=== PATIENT | female | born 1990 | race African-American/Black ===

== ENCOUNTER 2017-11-09 00:26 | Emergency (ER) | payer SELFPAY ==
[~2017-11-09] VITALS: Ht 170.2 cm; Wt 69.0 kg
[~2017-11-09 00:26] MED LIST: PREN-88 PO
[2017-11-09 00:46] VITALS: BP 130/74
== END 2017-11-09 07:13 | disposition left against medical advice (07) ==
LOC: ER 03:29
DX: R68.83 Chills (without fever) (principal); Z53.21 Procedure and treatment not carried out due to patient leaving prior to being seen by health care provider

== ENCOUNTER 2017-11-09 09:00 | Emergency (ER) | payer SELFPAY ==
[~2017-11-09] VITALS: Ht 167.6 cm; Wt 68.0 kg
[2017-11-09] MEDS ORDERED: SODIUM CHLORIDE 0.9% 1,000 ML IV ONE ×2 (10:04→12:06)
[2017-11-09] MEDS ORDERED: MORPHINE SULFATE 4 MG/ML CPJ (NOT FOR IM USE) IV STA (10:04)
[2017-11-09] MEDS ORDERED: ONDANSETRON HCL 4MG/2ML VIAL IV STA (10:04)
[2017-11-09] MEDS ORDERED: FAMOTIDINE 20MG/2ML VIAL IV STA (10:04)
[2017-11-09 10:35] LABS: BASOPHILS % 0.1 % (0.0-2.0); HEMATOCRIT. 37.5 % (36.0-48.0); HEMOGLOBIN. 12.9 g/dL (12.0-16.0); MEAN CORPUSCULAR VOLUME 87.2 fL (81.0-99.0); MEAN PLATELET VOLUME 7.7 fl (7.4-10.4); MONOCYTES % 12.2 % (2.0-8.0); NEUTROPHILS % 67.7 % (40.0-76.0); PLATELET 282 x1000/uL (130-400); RED CELL DISTRIBUTION WIDTH 13.6 % (11.6-14.6)
[2017-11-09 10:43] LABS: INR 1.2; PROTHROMBIN TIME 12.2 sec (9.4-11.6)
[2017-11-09 10:44] LABS: CHLORIDE 107 mEq/L (98-107); ETHANOL BLOOD < 10 mg/dL
[2017-11-09 10:48] LABS: HCG SCREEN NEGATIVE
[2017-11-09 10:59] LABS: CLARITY URINE CLOUDY (CLEAR); COLOR URINE DARK YELLOW (YELLOW); KETONES URINE NEGATIVE (NEGATIVE); LEUKOCYTE ESTERASE URINE NEGATIVE (NEGATIVE); NITRITE URINE NEGATIVE (NEGATIVE); OCCULT BLOOD URINE 3+ (NEGATIVE); PH URINE 5.5 (4.5-8.0); PROTEIN URINE 1+ (NEGATIVE); UROBILINOGEN URINE 0.2 E.U./dL (0.2-1.0)
[2017-11-09 11:27] LABS: *AMPHETAMINES SCREEN URINE NEGATIVE (NEGATIVE); *BARBITURATES SCREEN URINE NEGATIVE (NEGATIVE); *BENZODIAZEPINES SCREEN URINE NEGATIVE (NEGATIVE); *COCAINE SCREEN URINE NEGATIVE (NEGATIVE); METHADONE URINE SCREEN NEGATIVE (NEGATIVE); OPIATES URINE SCREEN NEGATIVE (NEGATIVE); PHENCYCLIDINE URINE SCREEN NEGATIVE (NEGATIVE)
[2017-11-09 11:35] LABS: CANNABINOID URINE SCREEN PRESUMTIVE POSITIVE (NEGATIVE)
[2017-11-09] MEDS ORDERED: MAGNESIUM/ALUMINUM HYDROXIDE/SIMETHICONE 30ML UDC PO ONE (12:15)
[2017-11-09 15:30] VITALS: BP 118/75
== END 2017-11-09 15:46 | disposition home or self-care (01) ==
LOC: ER 09:21
DX: N39.0 Urinary tract infection, site not specified (principal); K29.70 Gastritis, unspecified, without bleeding
CPT/HCPCS: 36415; 76705; 80053; 80305; 81003; 83690; 84484; 84703; 85025; 85610; 96361; 96374; 96375; 99285; G0482; J2270; J2405; J3490; J7030

== ENCOUNTER 2018-01-31 22:29 | Emergency (ER) | payer MEDICAID ==
[~2018-01-31] VITALS: Ht 170.2 cm; Wt 70.0 kg
[2018-01-31 23:27] LABS: CLARITY URINE CLEAR (CLEAR); COLOR URINE YELLOW (YELLOW); KETONES URINE NEGATIVE (NEGATIVE); LEUKOCYTE ESTERASE URINE NEGATIVE (NEGATIVE); NITRITE URINE NEGATIVE (NEGATIVE); OCCULT BLOOD URINE NEGATIVE (NEGATIVE); PH URINE 6.5 (4.5-8.0); PROTEIN URINE NEGATIVE (NEGATIVE); SPECIFIC GRAVITY URINE 1.006 (1.005-1.030); UROBILINOGEN URINE 0.2 E.U./dL (0.2-1.0)
[2018-02-01] MEDS ORDERED: KETOROLAC 60MG/2ML VIAL IM ONE (03:45)
[2018-02-01 05:03] VITALS: BP 115/69
== END 2018-02-01 05:04 | disposition home or self-care (01) ==
LOC: ER 22:29
DX: M54.9 Dorsalgia, unspecified (principal); S39.012A Strain of muscle, fascia and tendon of lower back, initial encounter; X58.XXXA Exposure to other specified factors, initial encounter; Y93.9 Activity, unspecified; Y92.9 Unspecified place or not applicable
CPT/HCPCS: 81003; 81025; 96372; 99283; J1885

== ENCOUNTER 2018-03-29 03:30 | Emergency (ER) | payer MEDICAID, OTHER ==
[~2018-03-29] VITALS: Ht 170.2 cm; Wt 70.0 kg
[2018-03-29] MEDS ORDERED: SODIUM CHLORIDE 0.9% 1,000 ML IV ONE (04:06)
[2018-03-29] MEDS ORDERED: KETOROLAC 30MG/ML VIAL IV STA (04:06)
[2018-03-29] MEDS ORDERED: CYCLOBENZAPRINE 10MG TABLET PO ONE (04:15)
[2018-03-29] MEDS ORDERED: METHYLPREDNISOLONE SOD SUCC 40 MG/ML VIAL IV ONE (04:15)
[2018-03-29 05:03] LABS: CLARITY URINE CLOUDY (CLEAR); COLOR URINE YELLOW (YELLOW); KETONES URINE TRACE (NEGATIVE); OCCULT BLOOD URINE NEGATIVE (NEGATIVE); PH URINE 5.5 (4.5-8.0); PROTEIN URINE TRACE (NEGATIVE); SPECIFIC GRAVITY URINE 1.029 (1.005-1.030)
[2018-03-29 05:04] LABS: LEUKOCYTE ESTERASE URINE TRACE (NEGATIVE); NITRITE URINE NEGATIVE (NEGATIVE)
[2018-03-29 06:07] VITALS: BP 121/88
== END 2018-03-29 06:08 | disposition home or self-care (01) ==
LOC: ER 03:30
DX: M54.5 Low back pain (principal); R51 Headache
CPT/HCPCS: 81003; 81025; 96374; 96375; 99285; J1885; J2920; J7030; Z7610

== ENCOUNTER 2018-07-31 10:54 | Emergency (ER) | payer OTHER ==
[~2018-07-31] VITALS: Ht 170.2 cm; Wt 77.0 kg
[2018-07-31] MEDS ORDERED: ONDANSETRON HCL 4MG/2ML INJ IV STA (11:16)
[2018-07-31] MEDS ORDERED: SODIUM CHLORIDE 0.9% 1,000 ML IV ONE (11:16)
[2018-07-31] MEDS ORDERED: FAMOTIDINE 20MG/2ML VIAL IV ONE (11:30)
[2018-07-31] MEDS ORDERED: FENTANYL CITRATE/PF 50MCG/ML 2ML VIAL IV ONE (12:15)
[2018-07-31 12:18] LABS: BASOPHILS % 0.5 % (0.0-2.0); EOSINOPHILS % 0.1 % (0.0-5.0); HEMATOCRIT. 41.2 % (36.0-48.0); HEMOGLOBIN. 13.9 g/dL (12.0-16.0); LYMPHOCYTES % 12.7 % (20.0-50.0); MEAN CORPUSCULAR HEMOGLOBIN 30.3 pg (28.0-32.0); MEAN CORPUSCULAR VOLUME 89.7 fL (81.0-99.0); MEAN PLATELET VOLUME 7.8 fl (7.4-10.4); MONOCYTES % 5.2 % (2.0-8.0); NEUTROPHILS % 81.5 % (40.0-76.0); PLATELET 350 x1000/uL (130-400); RED BLOOD CELL COUNT 4.59 mill/uL (4.2-5.4)
[2018-07-31 12:24] LABS: CHLORIDE 106 mEq/L (98-107)
[2018-07-31 12:26] LABS: INR 1.1; PROTHROMBIN TIME 10.9 sec (9.1-11.1)
[2018-07-31 12:28] LABS: ETHANOL BLOOD < 10 mg/dL
[2018-07-31 12:34] LABS: HCG SCREEN NEGATIVE
[2018-07-31] MEDS ORDERED: POTASSIUM CHLORIDE INJ 40 MEQ in DEXT 5% WATER 250 ML IV SCH (13:30)
[2018-07-31 14:54] LABS: CLARITY URINE CLEAR (CLEAR); COLOR URINE YELLOW (YELLOW); KETONES URINE 2+ (NEGATIVE); LEUKOCYTE ESTERASE URINE NEGATIVE (NEGATIVE); NITRITE URINE NEGATIVE (NEGATIVE); OCCULT BLOOD URINE NEGATIVE (NEGATIVE); PH URINE 8.5 (4.5-8.0); PROTEIN URINE NEGATIVE (NEGATIVE); SPECIFIC GRAVITY URINE 1.022 (1.005-1.030)
[2018-07-31 15:07] LABS: *AMPHETAMINES SCREEN URINE NEGATIVE (NEGATIVE); *BARBITURATES SCREEN URINE NEGATIVE (NEGATIVE); *BENZODIAZEPINES SCREEN URINE NEGATIVE (NEGATIVE); *COCAINE SCREEN URINE NEGATIVE (NEGATIVE); METHADONE URINE SCREEN NEGATIVE (NEGATIVE); OPIATES URINE SCREEN NEGATIVE (NEGATIVE); PHENCYCLIDINE URINE SCREEN NEGATIVE (NEGATIVE)
[2018-07-31 15:14] LABS: CANNABINOID URINE SCREEN PRESUMTIVE POSITIVE (NEGATIVE)
[2018-07-31] MEDS ORDERED: IBUPROFEN 400MG TABLET PO ONE (16:00)
[2018-07-31] MEDS ORDERED: POTASSIUM CHLORIDE 20MEQ TABLET SR PO ONE (16:15)
[2018-07-31 16:29] VITALS: BP 128/75
== END 2018-07-31 16:32 | disposition home or self-care (01) ==
LOC: ER 10:54
DX: R10.33 Periumbilical pain (principal); R11.10 Vomiting, unspecified; F12.10 Cannabis abuse, uncomplicated; Z98.890 Other specified postprocedural states
CPT/HCPCS: 36415; 74176; 80053; 80305; 81003; 83690; 84703; 85025; 85610; 96361; 96365; 96366; 96375; 99284; G0482; J2405; J3010; J3480; J3490; J7030; J7060

== ENCOUNTER 2022-03-30 20:32 | Emergency (ER) | payer OTHER ==
[~2022-03-30] VITALS: Ht 170.2 cm; Wt 72.4 kg
[2022-03-31] MEDS ORDERED: ACETAMINOPHEN WITH CODEINE 300/30MG TABLET PO STA (01:23)
[2022-03-31] MEDS ORDERED: KETOROLAC 60MG/2ML VIAL IM STA (01:23)
[2022-03-31 01:41] VITALS: BP 119/83
[2022-03-31 05:09] LABS: CLARITY URINE CLEAR (CLEAR); COLOR URINE YELLOW (YELLOW); KETONES URINE TRACE (NEGATIVE); NITRITE URINE NEGATIVE (NEGATIVE); OCCULT BLOOD URINE NEGATIVE (NEGATIVE); PROTEIN URINE NEGATIVE (NEGATIVE); SPECIFIC GRAVITY URINE 1.031 (1.005-1.030)
[2022-03-31 05:10] LABS: LEUKOCYTE ESTERASE URINE NEGATIVE (NEGATIVE)
== END 2022-03-30 23:36 | disposition home or self-care (01) ==
LOC: ER 20:32
DX: M54.50 Low back pain, unspecified (principal); F12.10 Cannabis abuse, uncomplicated; Z98.890 Other specified postprocedural states
CPT/HCPCS: 81003; 99283; J1885; 96372